=== PATIENT | female | born 1985 | race Two or more races ===

== ENCOUNTER 2018-11-26 21:28 | Emergency (ER) | payer MEDICAID ==
[~2018-11-26] VITALS: Ht 154.9 cm; Wt 118.8 kg
[2018-11-26 21:53] VITALS: BP 131/88
[2018-11-26 22:14] LABS: Urine Bacteria FEW /hpf (None Seen); Urine Blood Negative /uL (Negative); Urine Mucus FEW (None Seen); Urine Specific Gravity 1.033 (1.001-1.035); Urine WBC 7 /hpf (0 - 5)
== END 2018-11-27 00:50 | disposition home or self-care (01) ==
LOC: ER 21:33
DX: J06.9 Acute upper respiratory infection, unspecified (principal); N39.0 Urinary tract infection, site not specified
CPT/HCPCS: 81001; 81025

== ENCOUNTER 2022-06-12 18:05 | Emergency (ER) | payer MEDICAID ==
[~2022-06-12] VITALS: Ht 154.9 cm; Wt 264.0 kg
[2022-06-12 18:13] VITALS: BP 169/95
[2022-06-12] MEDS ORDERED: NITROFURANTOIN 100 mg CAP PO ONE (19:00)
== END 2022-06-12 20:19 | disposition left against medical advice (07) ==
LOC: ER 18:09
DX: O20.8 Other hemorrhage in early pregnancy (principal); Z3A.01 Less than 8 weeks gestation of pregnancy